=== PATIENT | male | born 1930 | race Caucasian/White ===

== ENCOUNTER 2017-10-16 13:02 | Inpatient (IN) | payer OTHER, MEDICAID ==
--- NOTE | 2017-10-16 12:57 | EDPHY ---
H & P Time Seen by Provider: 10/16/17 13:02 HPI/ROS: CHIEF COMPLAINT: Stroke Alert, left-sided deficits. HISTORY OF PRESENT ILLNESS: The patient is an 86 y/o male arriving emergently via EMS as a Stroke Alert from [facility] with left-sided neuro deficits noticed around 11:00 this morning , 2 hours prior to arrival. It's unclear when he was last seen normal. EMS noted left-sided weakness and left-sided facial droop on their arrival this afternoon. Per staff at the facility, he is normally able to move around somewhat independently; baseline mentation unknown. His medical history includes dementia, diabetes, and hypertension. He currently has a shingles infection with eruption on his face. Unknown if recent illness or trauma. He is able to slowly follow commands on assessment here and can tell me his name. Normal prehospital BGL. Per transfer paperwork he is on aspirin, but no anticoagulants. Further history limited by presentation. REVIEW OF SYSTEMS: Unable to obtain due to presentation. Past medical history: Dementia, diabetes, hypertension, hyperlipidemia, chronic kidney disease, per transfer paperwork. Past surgical history: Noncontributory. Family history: Noncontributory. Social history: Lives at [facility]. DNR with selective treatment (IV fluids and antibiotics okay, no major interventions). General Appearance: Alert. Vital signs reviewed. Face: Shingles rash across left side of face. Eyes: Pupils equal and round, no conjunctival injection, no discharge. Anicteric. ENT, Mouth: Mucous membranes are dry, no oropharyngeal erythema or edema. Neck: No lymphadenopathy, supple. Respiratory: Lungs are clear to auscultation; no wheezes, rales, or rhonchi. Cardiovascular: Regular rate and rhythm; no murmur, rub, or gallop. Gastrointestinal: Abdomen is soft and nontender, no masses or organomegaly. Skin: Warm and dry, shingles rash on face, normal color. Back: Deferred. Extremities: No lower extremity edema, no calf tenderness or swelling. Neurological: Alert, can state name, follows commands with some delay. Mild left nasolabial fold droop, mild left pronator drift. Psychiatric: Deferred. Constitutional: Initial Vital Signs Temperature (C) 36.8 C 10/16/17 13:08 Heart Rate 92 10/16/17 13:08 Respiratory Rate 16 10/16/17 13:08 Blood Pressure 113/68 10/16/17 13:08 O2 Sat (%) 97 10/16/17 13:08 O2 Delivery Mode Nasal Cannula O2 (L/minute) 2 Allergies/Adverse Reactions: No Known Allergies Allergy (Unverified 10/16/17 13:07) Home Medications: Medication Instructions Recorded Acetaminophen [Tylenol ES 500 mg 1,000 mg PO BID 10/16/17 (*)] Aspirin [Aspirin 81mg (*)] 81 mg PO DAILY 10/16/17 Calcium Carbonate [Tums 500MG (*)] 1,000 mg PO DAILY 10/16/17 Cholecalciferol Vit D3 [Vitamin D3 1,000 units PO DAILY 10/16/17 (*)] Docusate Sodium [Colace 100 MG (*)] 100 mg PO BID 10/16/17 Insulin Detemir [Levemir] 10 unit SQ DAILY 10/16/17 Lisinopril [Zestril 2.5 mg (*)] 2.5 mg PO DAILY@17 10/16/17 Medical Decision Making - Diagnostics Imaging Results: Imaging Impressions Chest X-Ray 10/16/17 13:04 Impression: Diffuse interstitial thickening throughout both lungs, without acute cardiopulmonary process identified. Head CT 10/16/17 13:04 Impression: Extensive underlying atrophy and white matter microvascular ischemic gliosis, without acute abnormality identified. Results called to Dr. Vianey Galvin at 1:15 PM at the time of the interpretation. Imaging: Discussed imaging studies w/ director of casino marketing Radiologist, I viewed and interpreted images myself ED Course/Re-evaluation: 1301: Met EMS upon arrival and took report. This is an 87 y/o male with dementia who presents with mild left-sided arm weakness and mild left-sided facial droop first noticed by facility staff about 2 hours prior to arrival here. He is able to state his name and follow basic commands slowly. Baseline mentation is not known. He has a shingles outbreak on his left face. No visible trauma. Plan for IV, labs, EKG, neuro imaging. 1303: Patient sent to CT for non-contrast head CT. Per transfer paperwork, patient has dementia, a DNR with selective treatment, and takes aspirin but no anticoagulants. He is likely not a TPA candidate. Will discuss with neurology once we have imaging reports. The 12 lead EKG was interpreted by myself. Atrial flutter rate 96, 3:1. See hard copy and/or "tracemaster" electronic copy for interpretation. 1316: Spoke with Dr. Barrera, radiologist. Non-contrast head CT shows atrophy and white matter disease, nothing acute. Case management will attempt to contact next of kin. 1322: Reassessed patient. Status unchanged. 1327: Consulted with Dr. Lacy, [facility]. Based upon the history and physical exam that I provided and based upon the patient's instructions for care , he does not think that this patient would be a good candidate for tPA and I agree. He describes the window as 3 hr for tPA for in a patient this age. The onset of symptoms remains unclear. He is out of the window for TPA per Dr. Lacy. Plan for supportive care, diltiazem bolus IV, 1L IV NS. Will watch BP closely. Chest x-ray: Reviewed by me. Shows multifocal interstitial thickening, no infiltrate. 1331: Reassessed patient. He is only oriented to self. He denies pain. Troponin is 0.045. Son is en route to the hospital per case management. 1430: Repeat 12 lead EKG was interpreted by myself. Atrial flutter with 3:1 conduction. See hard copy and/or "tracemaster" electronic copy for interpretation. Spoke with hospitalist service. Dr. Cramer accepts admission for possible CVA and atrial flutter. I have not spoken with the patient's family yet. Critical care time spent by me, Dr. Galvin, exclusively with this patient was 45 minutes, exclusive of PA time and exclusive of procedures. The organ system at risk was brain. Time spent in urgent assessment, activation of Stroke Alert, serial assessments of patient, discussion with patient and family, consideration of interventions, review of CT scans, and consultation with neurology and radiology. Differential Diagnosis: I considered a differential diagnosis including but not limited to hypoglycemia , infectious process, electrolyte abnormality, head injury, CVA, and intoxicants. - Data Points Laboratory Results: Laboratory Results 10/16/17 13:00 10/16/17 13:00 10/16/17 10/16/17 10/16/17 13:12 13:00 13:00 WBC RBC Hgb POC Hgb 13.9 gm/dL gm/dL (13.7-17.5) Hct POC Hct 41 % % (40-51) MCV MCH MCHC RDW Plt Count MPV Neut % (Auto) Lymph % (Auto) [place] % (Auto) Eos % (Auto) Baso % (Auto) Nucleat RBC Rel Count Absolute Neuts (auto) Absolute Lymphs (auto) Absolute Monos (auto) Absolute Eos (auto) Absolute Basos (auto) Absolute Nucleated RBC Immature Gran % Immature Gran # PT 13.9 SEC SEC (12.0-15.0) INR 1.05 (0.83-1.16) APTT 30.2 SEC SEC (23.0-38.0) POC Sodium 132 mEq/L L mEq/L (135-145) Sodium 133 mEq/L L mEq/L (135-145) POC Potassium 4.6 mEq/L mEq/L (3.3-5.0) Potassium 5.0 mEq/L mEq/L (3.5-5.2) POC Chloride 96 mEq/L L mEq/L (97-110) Chloride 96 mEq/L L mEq/L (97-110) Carbon Dioxide 26 mEq/l mEq/l (22-31) Anion Gap 11 mEq/L mEq/L (8-16) POC BUN 21 mg/dL mg/dL (7-23) BUN 21 mg/dL mg/dL (7-23) Creatinine 0.8 mg/dL mg/dL (0.7-1.3) POC Creatinine 0.8 mg/dL mg/dL (0.7-1.3) Estimated GFR > 60 Glucose 186 mg/dL H mg/dL (70-100) POC Glucose 206 mg/dL H mg/dL (70-100) Calcium 8.6 mg/dL mg/dL (8.5-10.4) Troponin I 0.045 ng/mL H ng/mL (0.000-0.034) 10/16/17 13:00 WBC 9.19 10^3/uL 10^3/uL (3.80-9.50) RBC 4.31 10^6/uL L 10^6/uL (4.40-6.38) Hgb 12.9 g/dL L g/dL (13.7-17.5) POC Hgb Hct 38.5 % L % (40.0-51.0) POC Hct MCV 89.3 fL fL (81.5-99.8) MCH 29.9 pg pg (27.9-34.1) MCHC 33.5 g/dL g/dL (32.4-36.7) RDW 13.7 % % (11.5-15.2) Plt Count 301 10^3/uL 10^3/uL (150-400) MPV 8.6 fL L fL (8.7-11.7) Neut % (Auto) 61.8 % % (39.3-74.2) Lymph % (Auto) 23.1 % % (15.0-45.0) [place] % (Auto) 12.7 % % (4.5-13.0) Eos % (Auto) 1.6 % % (0.6-7.6) Baso % (Auto) 0.5 % % (0.3-1.7) Nucleat RBC Rel Count 0.0 % % (0.0-0.2) Absolute Neuts (auto) 5.67 10^3/uL 10^3/uL (1.70-6.50) Absolute Lymphs (auto) 2.12 10^3/uL 10^3/uL (1.00-3.00) Absolute Monos (auto) 1.17 10^3/uL H 10^3/uL (0.30-0.80) Absolute Eos (auto) 0.15 10^3/uL 10^3/uL (0.03-0.40) Absolute Basos (auto) 0.05 10^3/uL 10^3/uL (0.02-0.10) Absolute Nucleated RBC 0.00 10^3/uL 10^3/uL (0-0.01) Immature Gran % 0.3 % % (0.0-1.1) Immature Gran # 0.03 10^3/uL 10^3/uL (0.00-0.10) PT INR APTT POC Sodium Sodium POC Potassium Potassium POC Chloride Chloride Carbon Dioxide Anion Gap POC BUN BUN Creatinine POC Creatinine Estimated GFR Glucose POC Glucose Calcium Troponin I Medications Given: Insulin Human Lispro (Humalog Lispro) 0 unit SC TIDMEAL YUVAL PRN Reason: Protocol Stop: 04/14/18 17:59 Last Admin: 10/16/17 18:10 Dose: 2 units Lisinopril (Zestril) 2.5 mg PO DAILY@17 YUVAL Stop: 04/14/18 16:59 Last Admin: 10/16/17 18:08 Dose: Not Given Discontinued Medications Diltiazem HCl (Cardizem 25 Mg/5 Ml Vial) 10 mg IVP EDNOW ONE Stop: 10/16/17 13:26 Last Admin: 10/16/17 13:37 Dose: 10 mg Sodium Chloride (Ns) 1,000 mls @ 500 mls/hr IV EDNOW ONE PRN Reason: Protocol Stop: 10/16/17 15:03 Last Admin: 10/16/17 13:25 Dose: 1,000 mls Diltiazem HCl 125 mg/ Dextrose 125 mls @ 0 mls/hr IV EDNOW ONE; As Directed PRN Reason: Protocol Stop: 10/16/17 14:03 Last Admin: 10/16/17 18:08 Dose: Not Given Point of Care Test Results: 10/16/17 13:12 POC Sodium 132 L POC Potassium 4.6 POC Chloride 96 L POC BUN 21 POC Creatinine 0.8 POC Glucose 206 H Departure - Departure Disposition: [facility] Inpatient Acute Clinical Impression: CVA (cerebral vascular accident) Qualifiers: CVA mechanism: unspecified Qualified Code(s): I63.9 - Cerebral infarction, unspecified Atrial flutter Qualifiers: Atrial flutter type: unspecified Qualified Code(s): I48.92 - Unspecified atrial flutter Condition: Fair Report Scribed for: Vianey Galvin Report Scribed by: Donna García Date of Report: 10/16/17 Time of Report: 12:59 Physician Review and Approval Statement: 10/16/17 21:44 Portions of this note were transcribed by the medical cost consultant. I, Dr. Vianey Galvin, personally performed the history, physical exam, and medical decision- making; and confirmed the accuracy of the information in the transcribed note.
[2017-10-16] MEDS ORDERED: NS 1,000 ML IV ONE (13:04)
[2017-10-16 13:15] LABS: PLATELET COUNT 301 10^3/uL (150-400)
--- NOTE | 2017-10-16 13:19 | CPEKG ---
Heart Rate: 96 RR Interval: 625 QRSD Interval: 102 QT Interval: 392 QTC Interval: 496 QRS [place]: 52 T Wave [place]: 59 EKG Severity - ABNORMAL ECG - EKG Impression: ATRIAL FLUTTER, A-RATE 333 EKG Impression: MULTIFORM VENTRICULAR PREMATURE COMPLEXES EKG Impression: INFERIOR INFARCT, OLD EKG Impression: CONSIDER ANTERIOR INFARCT EKG Impression: PROLONGED QT INTERVAL Electronically Signed By: Vianey Galvin 16-Oct-2017 21:03:07
[2017-10-16 13:25] LABS: INR 1.05 (0.83-1.16); PROTIME(PATIENT) 13.9 SEC (12.0-15.0)
[2017-10-16] MEDS ORDERED: DILTIAZEM 25 MG/5 ML VIAL IVP ONE (13:25)
[2017-10-16] MEDS ORDERED: DILTIAZEM 50 MG/10 ML VIAL IV ONE (13:29)
--- NOTE | 2017-10-16 13:44 | PDCONSULT ---
Phlebotomy Tech Note: [place] Telehealth Note -Phone Only Demographics Consult Type: Phone Only First Name: Jeyson Last Name: Masood Date of : 1930 Age: 87 Gender: Male Referring Provider: Dr Galvin Time of initial page ([place] Time): 10/16/2017 13:21 Time of return call ([place] Time): 10/16/2017 13:26 HPI Additional History (Free Text): 86 yo man with left face and arm weakness noted 2 hours prior to arrival, last known well time prior to that uncertain. He is in new Aflutter and hos apparent shingles outbreak on left forehead as well. Advanced directive specifies limited interventions, IVF and antibiotics OK, no other intensive interventions. PM-- Past Medical History: Dementia, Diabetes Mellitus, Hyperlipidemia, Hypertension Social History: lives in long-term Medications: aspirin Assessment:Probable acute stroke Plan Labs: HgbA1c, Lipid Panel Therapy/Eval: NPO until cleared by swallow evaluation, PT/OT Medication: aspirin 325mg per day VTE Prophylaxis: SCD, Heparin 5000 units subcutaneously q 12 hours Additional Recommendations: Not tPa candidate due to uncertain last known well time. (tPA window < 3hours with age > 80). Best supporrtive care. Repeat CT or MRI may better define suspected stroke tomorrow. Management of Aflutter fibrillation as needed, rate control may take priority over permissive HTN. Disposition: admit [employer] Telemedicine: Interactive 2 way audio and visual telecommunication technology was utilized during this visit. Provider Location: [place]
[2017-10-16] MEDS ORDERED: DILTIAZEM 125 MG in D5W 125 ML IV ONE (14:02)
--- NOTE | 2017-10-16 14:31 | CPEKG ---
Heart Rate: 91 RR Interval: 659 QRSD Interval: 108 QT Interval: 412 QTC Interval: 508 QRS [place]: -13 T Wave [place]: 48 EKG Severity - ABNORMAL ECG - EKG Impression: MULTIFORM VENTRICULAR PREMATURE COMPLEXES EKG Impression: PROBABLE INFERIOR INFARCT, OLD EKG Impression: BORDERLINE PROLONGED QT INTERVAL EKG Impression: ATRIAL FLUTTER Electronically Signed By: Vianey Galvin 16-Oct-2017 21:03:00
[2017-10-16] MEDS ORDERED: ONDANSETRON 4 MG/2 ML VIAL IVP PRN (16:04)
[2017-10-16] MEDS ORDERED: ACETAMINOPHEN 325 MG TAB PO PRN (16:04)
[2017-10-16] MEDS ORDERED: ONDANSETRON DISINTEGRATING 4 MG TAB PO PRN (16:04)
[2017-10-16] MEDS ORDERED: D50W 25 GM/50 ML SYR IVP PRN (16:07)
--- NOTE | 2017-10-16 16:41 | GHP ---
[f rep st] HISTORY AND PHYSICAL DATE OF ADMISSION: 10/16/2017 CHIEF COMPLAINT: Weakness. HISTORY OF PRESENT ILLNESS: An 87-year-old male who has a history of fairly advanced dementia. He h as been living at [facility] for the last 3 years. However, other than that he is fairly healthy, ot her than history of type 2 diabetes and a previous history of CABG many years ago. He was in his [facility] state of health until it was noticed this morning that he had left-sided weakness and left-sided f acial droop. He also had difficulty speaking. His blood sugar at the long term was normal. By t he time of my interview, the patient seems to be improving, although he does still have a little bit of left facial droop. He has never had any previous strokes. No previous history of atrial flutter as well, which he is in now. His baseline is that he gets around with a wheelchair and that he has good days and bad days, but nixon etimes able to remember his son. In the past, he has fallen a significant amount, although recently he has fallen less. Patient also was diagnosed with shingles apparently about 7 days ago. It is unclear if he received a course of Valtrex, but it seems that the shingles has crusted over already. REVIEW OF SYSTEMS: Unable to obtain secondary to patient's dementia. PAST MEDICAL HISTORY: 1. Dementia. 2. 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 3. Type 2 diabetes, on insulin. 4. Possible mild hypertension, on a very small dose of lisinopril. MEDICATIONS: Reviewed. SOCIAL HISTORY: No smoking or alcohol. Lives at [facility]. FAMILY HISTORY: Both parents are . PHYSICAL EXAMINATION: VITAL SIGNS: Afebrile, blood pressure is 127/83, heart rate 83, oxygen satura tion 99% on 2 L. GENERAL: The patient is well-developed, no apparent distress. HEENT: Nonicteric sclerae. Left-sided shingles that is crusted over the eye and forehead. His left eye has a little b it of injection, but he has been keeping it closed. NECK: Supple. No carotid bruits. LUNGS: Good effort. Clear to auscultation. CARDIOVASCULAR: Regular rate and rhythm. No murmurs or gallops. ABDOMEN: Positive bowel sounds. Soft, nontender, nondistended. No hepatosplenomegaly. EXTREMITIES : No clubbing, cyanosis, or edema. There are some brawny changes of the bravo area. NEUROLOGIC: Al ert. Does respond to some questions, but not related to commands. He does have a slight left facial droop. Difficult to assess strength. It looks like his left upper extremity is a little bit on the weaker side. PSYCHIATRIC: Normal mood and affect. LABS: Sodium a little bit low at 133, creatinine 0.8. Troponin slightly elevated at 0.05. Hemoglob in is slightly low at 12.9. Head CT personally reviewed and interpreted. There is extensive atrophy, but is otherwise without ac gilda CVA. EKG shows A-flutter with a 3:1 block. Chest x-ray, personally reviewed and interpreted, shows some interstitial thickening. ASSESSMENT: An 87-year-old male presenting with transient ischemic attack versus cerebrovascular acc ident. PLAN: 1. TIA versus CVA. Symptoms seem to be getting better. We will get an MRI in the morning. Embolic phenomenon with A-flutter could definitely be the cause. In terms of future stroke prophylaxis, felix davis and patient's family want more minimal interventions. He has does seem to be a fall risk. At t his point, I am not sure long-term anticoagulation would be right for him; however, we will have to w ait until the MRI done tomorrow to see if there is a stroke and, if so, it might be too large for us to immediately start anticoagulation. 2. A-flutter. The patient is rate controlled. Would not give any alberto blocking agents at this guille e. Would also not try to chemically convert. We will continue to watch it. We will get an echocard iogram and a TSH. Consider cardiology consultation. The question of anticoagulation has been addres sed above. 3. Shingles. Appears to be at end stages with crusting of the lesions. I would not start Valtrex c urrently. Could consider ophthalmology consultation, though, in the morning. 4. Slightly elevated troponin. We will recheck this in the morning. 5. Type 2 diabetes. We will continue sliding scale. 6. Possible hypertension. I suspect he might be on a small dose of lisinopril due to his diabetes. I am going to hold in case we do need a little bit of alberto blocking agents in the future. 7. DVT prophylaxis. We will treat with Lovenox. 8. Code status. Patient is a DNR. /[id number]/MODL
--- NOTE | 2017-10-16 17:40 | PDMN ---
Medical Necessity Medical necessity: C/M review: est. > 2 MN LOS for eval and TX of acute TIA versus CVA, left sided weakness and left sided facial droop, difficulty speaking , (symptoms improving, patient still has slight left facial droop, left upper extremity slightly weaker), new onset atrial flutter, slightly elevated troponin requiring planned Neurology consult, Rehab eval consult, Wound care consult, MRI brain, Doppler carotid bilateral US, echocardiogram, IV Diltiazem x 1 in ED, ongoing NPO, IV fluids, acute inpt PT/OT/ST in SDU, comorbid left sided shingles over the eys and forehead (diagnosed 7 days prior to this admission) with end stage with crusting of lesions - present on admission, type 2 dabetes, possible hypertension, dementia, history of CABG 10 or 15 yeatr ago, patient gets around in a wheelchair at baseline, history of falls per H/P.
[2017-10-16] MEDS: LISINOPRIL 2.5 MG TAB PO SCH (18:08)
[2017-10-16] MEDS: INSULIN LISPRO 100 UNIT/ML SC SCH (18:10)
--- NOTE | 2017-10-16 19:14 | ASMTCMCOM ---
CM Note CM Note Notes: Pt presented to the ED via EMS as a Stroke Alert with left sided facial droop, weakness and difficulty speaking. Pt has a history of dementia, Type 2 DM, CABG years ago, HTN. Pt typically uses a wheelchair. Pt admtd for possible TIA vs CVA, A-flutter and shingles. Pt to have MRI tomorrow, repeat Troponin and cardiology consult. Patient lives at [facility]. This CM called and requested they fax over pt's demographic/face sheet because it did not come with EMS; received face sheet. Contacted pt's son and [facility], Leelee Correia (h:[phone], c:[phone]) and Leelee's , Danita (c:[phone]); updated on patient's status. [facility] and it was scanned into pt's chart. Pt is a DNR and this was discussed briefly with Leelee over the phone while he was en route to the hospital; Leelee asked whether he could override the pt's DNR Advance Directive status. Pt also has a daughter, Carissa Hernandez ([phone], ) Exact DC needs unknown, CM to follow. Date Signed: 10/16/2017 07:14 PM Electronically Signed By:Ping Guajardo RN
[2017-10-16] MEDS ORDERED: ALBUMIN 5% 500 ML BOTTLE IV ONE (20:13)
[2017-10-17 05:36] LABS: PLATELET COUNT 269 10^3/uL (150-400)
[2017-10-17] MEDS: INSULIN LISPRO 100 UNIT/ML SC SCH ×3 (09:23→17:42)
--- NOTE | 2017-10-17 11:31 | GCON ---
[f rep st] CONSULTATION NEUROLOGIC CONSULTATION DATE OF CONSULTATION: 10/17/2017 REFERRING PHYSICIAN: Adonis Cramer MD HISTORY: The patient is an 87-year-old gentleman whom I am asked to see in neurologic consultation r egarding possible stroke. History is obtained from reviewing the history and physical, emergency dep artment records, as well as discussions with his nurse. Family is not immediately available for disc ussion. The patient apparently has a baseline moderate dementia and lives at [facility] for the last 3 years. The report from yesterday is that he seemed to notice weakness in his left side and some facial lindsay op. It sounds as if he did not specifically notice it, because when I asked him he was not aware of it, but this must have been noticed at the facility leading to him coming to the hospital in a stroke alert status. There was also some report of trouble with speaking. They checked his blood sugar. That did not show any acute changes, and he came to the emergency room for evaluation. He had a nega tive head CT. He was not felt to be a candidate for tPA a few hours into the onset of symptoms, and with his condition of dementia and uncertainty about overall risk versus benefit, it was decided with the consulting neurologist at [facility] and the emergency room physician that it would be appropriate to admit him and monitor him. The patient is unable to elaborate any details about this. He has be en stable overnight. This morning, he does not have any specific complaints. He denies headache or focal numbness or weakness. He apparently gets around with a wheelchair most of the time, and I do n ot know if he ever does any other kind of ambulation, but it does not sound as if that is the case. That is something we need to further understand. Since admission, there have been no recurrent docum entation of left-sided weakness. Dr. Cramer thought there might be a subtle left facial droop. PAST MEDICAL HISTORY: Dementia for some number of years, coronary bypass, type 2 diabetes, hypertens ion. Please note above. He also has a history of atrial flutter. SOCIAL HISTORY: He resides at [facility] and apparently may have lived in [place] before moving here, b ut I do not know that other than he said he was currently in [place], [place]. FAMILY HISTORY: Noncontributory. MEDICATIONS: The patient's listed medications at home: Insulin; aspirin 81 mg; lisinopril; calcium; Colace. He is now on Lovenox here in the hospital, continuing low-dose aspirin. REVIEW OF SYSTEMS: Unreliable for detail from the patient except what I have mentioned above. We do not have any history of known stroke. PHYSICAL EXAMINATION: VITAL SIGNS: Blood pressure 122/70, pulse of 84. He does have atrial flutter on the monitor. Oxygen saturation 92%, temperature 36.8. That was at 1308 p.m. yesterday. GENERAL : He is well developed, in no acute distress. NECK: Supple with no bruits or masses. CARDIAC: Re gular rate and rhythm. No murmur. MUSCULOSKELETAL: He is an elderly man with some chronic trophic changes in his legs around the calves over the course of about 10 cm bilaterally. That is clearly a chronic change in the skin. No full breakdown of the skin. NEUROLOGIC: He initially was with his e yes closed in bed, quiet, but with mild stimulation, he would awaken. He could tell me his name and follows some commands in all the extremities intermittently. He would try to open his eyes and could do so but had a lot of crusting around the left eye where he has had a recent zoster infection in th e ophthalmic division of the trigeminal nerve for about the past week. These are crusted-over lesion s. He kept saying he was in [place], [place] when I would ask. He did not realize he was in the hospital. He did not know he currently lives in [place]. He could not tell me the month or the year. He co uld count my fingers and again follow some basic instructions to move the extremities for example, an d as the therapist started to work with him as I finished my evaluation, they told me he was starting to become more alert and able to interact a little bit better. Pupils 2 mm and reactive. There is not overt conjunctival injection on the left. I do not see any visual field loss. Pupils 3 mm and r eactive. Facial sensation seems to be preserved. No facial asymmetry. Palate elevates symmetricall y. Tongue protrudes midline. Motor exam: Generalized decreased bulk for his age but not surprising at age 87. He has a little bit of proximal weakness in the upper and lower extremities, but I could not detect any distinct asymmetry. He seemed to be in the 4/5 range in all the extremities. Sensat ion is preserved for at least temperature and light touch in all the extremities. The reflexes are h ypoactive with no Babinski signs. I have reviewed his head CT. This shows atrophy which is extensiv e and white matter change but no acute stroke or hemorrhages. He had carotid ultrasound also obtaine d yesterday afternoon. He has moderate plaquing but no hemodynamically significant stenoses to sugge st anything greater than 50%. IMPRESSION: Total unit of time of 70 minutes was spent reviewing case and counseling and coordinatio n of care. We will need further discussions with family as well when they are available. As I viewe d this situation currently, he appears to be someone who has at least a moderate dementia and probabl y did not have a completed stroke based on the clinical findings now without distinct abnormalities b ut may have had a small stroke or transient ischemic attack in the last 24 hours. The patient may be close to his baseline, but we can get confirmation with that as well. Current NIH stroke scale woul d be 2 based on questions that he is able to answer. Although he has a recent zoster infection over the left 1st division of the trigeminal nerve, it does not appear to be actively involving his eye an d unlikely that he has intracranial spread. I think this can be clinically monitored. As Dr. Cramer suggested, he did not want to start him on Valtrex or antiviral therapy at this stage. It will be he lpful to know more about his state of dementia and how this has evolved. We also need further clarif ications on the extent of evaluations family may be looking for. I do not think it is necessary for him to go through MRI at this point because I do not think that would change his management, so we wi ll continue to monitor his progress and hopefully get him stabilized as soon as possible but learn mo re as the therapists work with him about his safety to continue to return to his current living situa tion. I recommend aspirin for now. The lipid profile shows LDL cholesterol 73, which is in good ran ge, so I would not recommend a statin in his case. /[id number]/MODL
--- NOTE | 2017-10-17 11:53 | ECHO ---
[email or web address] [address] Main: [phone] Fax: Transthoracic Echocardiogram Name: SREEKANTH EM MR#: [id number] Study Date: 10/17/2017 Study Time: 07:51 AM Date of : 1930 Age: 87 year(s) Height: 175.3 cm (69 in.) Weight: 72.58 kg (160 lb.) BSA: 1.88 m2 Gender: Male Examination: Echo Indication: Iscehemic Stroke, Atrial Flutter Image Quality: Contrast: Requested by: Adonis Cramer BP: 106 mmHg/57 mmHg Heart Rate: Rhythm: Indication: Iscehemic Stroke, Atrial Flutter Procedure Staff Sleeve Turner: Kana Peacock RDCS Reading Physician: Frandy Sullivan MD Requesting Provider: Conclusions: The rhythm is atrial fibrillation /flutter with a controlled ventricular response. Normal left ventricular size and systolic function . LVEF estimated at 60-65% and calculated at 68% by Talavera's. No evidence of ischemic appearing wall motion abnormalities . Normal RV, LA and RA dimensions. Intact interatrial septum on 2 dimensional imaging, color flow and agitated saline contrast injection. Mild aortic sclerosis without stenosis. Mild tricuspid regurgitation. Moderately elevated estimated RVSP. Measurements: Chambers Valvular Assessment AV/MV Valvular Assessment TV/PV Normal Normal Normal Name Value Range Name Value Range Name Value Range Ao Regi (MM): 3.1 cm (2.2 cm-3.7 AV Vmax: 1.44 m/s (1 m/s-1.7 TR Vmax: 3.61 mm/s ( - ) cm) m/s) TR PGmax: 52 mmHg ( - ) IVSd (2D): 0.8 cm (0.6 cm-1.1 AV maxP mmHg ( - ) syst. PAP: 57 mmHg ( - ) cm) AV meanP mmHg ( - ) PV Vmax: 1.11 m/s (0.6 m/s-0.9 LVDd (2D): 3.4 cm (4.2 cm-5.9 JEANMARIE (VTI): 1.5 cm ( - ) m/s) cm) MV E Vmax: 1.15 m/s ( - ) PV PGmax: 5 mmHg ( - ) LVDs (2D): 2.2 cm (2.1 cm-4 cm) LVPWd (2D): 1.0 cm (0.6 cm-1 cm) LVOTd 2.0 cm 2.0 cm mm LVEF (2D): 68 (>=54 %) Continued Measurements: Chambers Valvular Assessment AV/MV Valvular Assessment TV/PV Name Value Name Value Name Value LADs Lon.2 cm MV E' Septal: 0.08 m/s CVP (est.): 5 mmHg LA Area: 13.3 cm2 MV E/E' Septal: 13.90 Patient: SREEKANTH EM Study Date: 10/17/2017 Page 1 of 2 07:51 AM MV E/E' Lateral: 7.20 Findings: Left Ventricle: Normal size left ventricle. No LV hypertrophy. Normal global systolic LV function. EF is 68 %. No regional wall motion abnormality. Right Ventricle: Normal size right ventricle. Normal RV function. Left Atrium: The left atrium is normal in size. An agitated saline study was performed and was negative for intracardiac shunting. Right Atrium: The right atrium is normal in size. Mitral Valve: The mitral valve is normal in appearance and function. There is no mitral valve regurgitation. Aortic Valve: The aortic valve is tri-leaflet. Mild aortic cusp calcification is noted. No aortic valve stenosis is present. Tricuspid Valve: The tricuspid valve appears normal. Mild tricuspid regurgitation is present. The pulmonary artery pressure is mild to moderately increased. Pulmonic Valve: The pulmonic valve is normal in appearance and function. Aorta: The aorta is normal. Pericardium: No pericardial effusion. (No Signature Object) Patient: SREEKANTH EM Study Date: 10/17/2017 Page 2 of 2 07:51 AM [id number]
[2017-10-17] MEDS: ENOXAPARIN 40 MG/0.4 ML SYR SC SCH (12:10)
[2017-10-17] MEDS: ASPIRIN 81 MG CHEWABLE TAB PO SCH (12:10)
[2017-10-17] MEDS: NS 1,000 ML IV SCH (12:37)
--- NOTE | 2017-10-17 15:58 | HOSPPROG ---
Hospitalist Progress Note Assessment/Plan: 87 yo M with hx of advanced dementia admitted with left sided weakness/left facial droop in setting of TIA/CVA # TIA/CVA: overnight sxs have improved significantly in terms of left sided weakness, this could represent small stroke. Will not get MRI as this would not likely change any management at this point. Appreciate neuro following, will continue pt/ot. # shingles: in trigeminal distribution, crusted over already and likely not overly symptomatic at this point # dementia: quite advanced but at baseline more interactive than currently # acute encephalopathy: more somnolent than baseline and suspect this is largely driven by delirium in the setting of not much sleep overnight etc # DM: with A1c of 8.1, continued on SSI, on detemir at home # IP status, will need > 48 hours stay for eval/mgmt of above Care plan reviewed with neurology and patients daughter present at bedside. Subjective: no significant overnight events, patient somnolent but arousable Objective: Vital Signs Temp Pulse Resp BP Pulse Ox 37.1 C 83 12 111/58 L 97 10/17/17 11:48 10/17/17 11:48 10/17/17 11:48 10/17/17 11:48 10/17/17 11:48 Laboratory Results 10/17/17 04:55 10/17/17 04:55 10/16/17 10/17/17 10/18/17 05:59 05:59 05:59 Intake Total 1270 Output Total 740 Balance 530 PT 13.9 SEC (12.0-15.0) 10/16/17 13:00 INR 1.05 (0.83-1.16) 10/16/17 13:00 somnolent arousable anicteric, scabbing shingles lesions over left eye op clear rrr no mrg cta b soft nt nd no cce warm dry well perfused - Time Spent With Patient Time Spent with Patient: greater than 35 minutes Time Spent with Patient: Greater than 35 minutes spent on this patients care, greater than 50% of time spent counseling, educating, and coordinating care regarding the above mentioned plan. ICD10 Worksheet Patient Problems: Problems Problem Status Onset CVA (cerebral vascular accident) Acute Atrial flutter Acute
--- NOTE | 2017-10-17 17:07 | WOCRNPDOC ---
WOCRN Advanced Assessment Note - Skin Integrity Problem, Advanced Assess Sacrum Dressing Type: Mepilex Border Dressing Description: Clean/Dry, Intact Exudate Amount: None Integumentary Issue Intervention: Dressing Removed Mary Wound Tissue: Blanching, Intact Wound Bed Color: [place], White Wound Edges: Well Defined Site Measurement - Head-to-Toe Length X Width X Depth (cm): 0.6x0.4x0.3 Skin Integrity Problem Comment: Patient with an anatomical dimple over sacral region, approximately the size of the tip of a cotton tipped swab. No exudate from wound. Base of dimple appears white but I believe this to be maceration from moisture trapped in the area. Will remove sacral dressing for now and recommend calazime to area if needed. Wound care will roung again later this week.
[2017-10-17] MEDS: LISINOPRIL 2.5 MG TAB PO SCH (17:41)
[2017-10-18] MEDS: NS 1,000 ML IV SCH (01:08)
[2017-10-18 07:42] VITALS: BP 125/61
[2017-10-18] MEDS: INSULIN LISPRO 100 UNIT/ML SC SCH ×2 (08:54→12:07)
[2017-10-18] MEDS: ENOXAPARIN 40 MG/0.4 ML SYR SC SCH (09:50)
[2017-10-18] MEDS: ASPIRIN 81 MG CHEWABLE TAB PO SCH (09:50)
--- NOTE | 2017-10-18 11:44 | HOSPPROG ---
Hospitalist Progress Note Assessment/Plan: 87 yo M with hx of advanced dementia admitted with left sided weakness/left facial droop in setting of TIA/CVA # TIA/CVA: with original sxs of left sided weakness which continues to improve. 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 Remains somnolent but more interactive today, continue pt/ot. # shingles: in trigeminal distribution, crusted over and patient denies much sxs related to this at this time # dementia: quite advanced at baseline per family, today he is closer to his baseline however and more interactive # acute encephalopathy: more somnolent than baseline and suspect this is largely driven by delirium in the setting of not much sleep/hospitalization and tia/cva. Improved today, continue to work on orientation and keeping patient awake during the day # DM: with A1c of 8.1, continued on SSI, on detemir at home # IP status, will need > 48 hours stay for eval/mgmt of above Subjective: no significant overnight events, patient denies issues this am Objective: Vital Signs Temp Pulse Resp BP Pulse Ox 36.8 C 79 14 125/61 H 94 10/18/17 07:41 10/18/17 07:41 10/18/17 07:41 10/18/17 07:41 10/18/17 07:41 Laboratory Results 10/17/17 04:55 10/17/17 04:55 10/17/17 10/18/17 10/19/17 05:59 05:59 05:59 Intake Total 1270 2030 Output Total 740 650 Balance 530 1380 PT 13.9 SEC (12.0-15.0) 10/16/17 13:00 INR 1.05 (0.83-1.16) 10/16/17 13:00 somnolent arousable anicteric, scabbing shingles lesions over left eye op clear rrr no mrg cta b soft nt nd no cce warm dry well perfused oriented to self and place, more interactive, strength diminished throughout but equal ICD10 Worksheet Patient Problems: Problems Problem Status Onset Atrial flutter Acute CVA (cerebral vascular accident) Acute
--- NOTE | 2017-10-18 14:12 | PDDCSUM ---
Discharge Summary Discharge Summary: DAtes of service 10/16-10/18/17 Consultations: neurology Procedures performed: head ct, echo, carotid dopplers Hospital course by problem: 87 yo M with hx of advanced dementia admitted with left sided weakness/left facial droop in setting of TIA/CVA # TIA/CVA: with original sxs of left sided weakness which continues to improve. MRI not pursued as determination of whether or not this was a small cva will be unlikely to data management associate. Remains somnolent but more interactive today, per caregivers and pt/ot eval this is essentially his baseline. # shingles: in trigeminal distribution, crusted over and patient denies much sxs related to this at this time # dementia: quite advanced at baseline per family, today he is closer to his baseline however and more interactive # acute encephalopathy: as above, driven by tia as well as delirium, back to baseline # DM: with A1c of 8.1, continued on SSI, on detemir at home dc back to snf > 35 min spent in dc, more than half in coordination of care
--- NOTE | 2017-10-18 14:12 | PDIAF ---
- Diagnosis Code Status: Do Not Resuscitate - Medication Management Discharge Medications: Medications to Continue on Transfer Acetaminophen [Tylenol ES 500 mg (*)] 1,000 mg PO BID 10/16/17 [Last Taken 10/16 09:00] Aspirin [Aspirin 81mg (*)] 81 mg PO DAILY 10/16/17 [Last Taken 10/16/17] Calcium Carbonate [Tums 500MG (*)] 1,000 mg PO DAILY 10/16/17 [Last Taken ] Cholecalciferol Vit D3 [Vitamin D3 (*)] 1,000 units PO DAILY 10/16/17 [Last Taken 10/16/17] Docusate Sodium [Colace 100 MG (*)] 100 mg PO BID 10/16/17 [Last Taken 10/16/17 09:00] Insulin Detemir [Levemir] 10 unit SQ DAILY 10/16/17 [Last Taken 10/16/17] Lisinopril [Zestril 2.5 mg (*)] 2.5 mg PO DAILY@17 10/16/17 [Last Taken 10/15/17 ] Acetaminophen [Tylenol 325mg (*)] 650 mg PO Q4HRS PRN tab 10/18/17 [Last Taken Unknown] Discharge Medications: Refer to the Discharge Home Medication list for PRN reason. - Orders Services needed: Registered Nurse, Certified Manager Access, Physical Therapy, Occupational Therapy, Speech Language Pathologist Diet Texture: Dysphagia 3 - Advanced - Moist, Bite-Size, Thin Liquids, Meds Whole in Puree - Follow Up Care Current Providers and Referrals: Patient,NotPresent [Unknown] - As per Instructions
--- NOTE | 2017-10-18 15:50 | ASDISCHSUM ---
Discharge Information Plan Status:SNF Medically Cleared to Leave:10/18/2017 Discharge Date:10/18/2017 CM D/C Disposition:[facility] Facility ADT D/C Disposition:[facility] Facility Projected Discharge Date:10/18/2017 04:30 PM Transportation at D/C:ALS/BLS Discharge Delay Reason: Follow-Up Date:10/18/2017 04:30 PM Discharge Slot: Final Diagnosis:TIA/CVA, Shingles, Encephalopathy Placement Information Referral Type:*Senior Living/SNF Referral ID:[id number] Provider Name:[facility] Address 1:[address] Address 2: City:[place] Selection Factors: State:[place] Patient Contact Information Contact Name:KYRA Relationship:Son [address] City:[place] Phone: State/Zip Code:[place] [address] Email: Financial Information Financial Class:Medicare Advantage Plans Primary Plan Desc:[facility] [employer] Primary Plan Number:[id number] Secondary Plan Desc:[place] Secondary Plan Number:[id number] Assessment Information [facility] Progress Note CM Note CM Note Notes: Pt presented to the ED via EMS as a Stroke Alert with left sided facial droop, weakness and difficulty speaking. Pt has a history of dementia, Type 2 DM, CABG years ago, HTN. Pt typically uses a wheelchair. Pt admtd for possible TIA vs CVA, A-flutter and shingles. Pt to have MRI tomorrow, repeat Troponin and cardiology consult. Patient lives at [facility]. This CM called and requested they fax over pt's demographic/face sheet because it did not come with EMS; received face sheet. Contacted pt's son and MDPOA, Leelee Correia (h:[phone], c:[phone]) and Leelee's , Danita (c:[phone]); updated on patient's status. Leelee provided [facility] paperwork and it was scanned into pt's chart. Pt is a DNR and this was discussed briefly with Leelee over the phone while he was en route to the hospital; Leelee asked whether he could override the pt's DNR Advance Directive status. Pt also has a daughter, Carissa Hernandez ([phone], ) Exact DC needs unknown, CM to follow. Date Signed: 10/16/2017 07:14 PM Electronically Signed By:Ping Guajardo RN LACE LACE Acuity / Level of Answers: Yes Care: Did the patient have an inpatient admission? Comorbidities - select Answers: Cerebrovascular disease all that apply (CVA, TIA, aneurysms, vasc ular dementia) Diabetes (uncontrolled or controlled) Moderate or severe liver or renal disease # of Emergency department Answers: 1-2 visits in the last 6 months Score: 10 Date Signed: 10/16/2017 07:15 PM Electronically Signed By:Ping Guajardo RN Case Management Discharge Plan Note Case Management Discharge Discharge Order Complete? Answers: Yes Patient to Obtain Answers: Other Notes: [facility] Transportation Arranged Answers: [facility] Transport will Pick (Date 10/18/2017 04:30 PM & Time) Case Management Transport Answers: Yes Form Complete Faxed Final Orders Answers: Yes Notes: [facility] Family Notified Answers: Yes Discharge Comments Notes: Patient at baseline/Therapies. Was involved with [facility] at [facility]. Will return to [facility] today. [facility] to transport. Date Signed: 10/18/2017 03:48 PM Electronically Signed By:Mena Arnold LCSW Intervention Information Intervention Type:Locating Emergency Contact Date of Service:10/16/2017 07:16 PM Patient Type:Inpatient Staff Member:JASMINE Guajardo Sharon Hours:0.5 Discipline:Restaurant Attendant Severity: Comment:
== END 2017-10-18 15:40 | DRG 64 ==
LOC: F2N 15:41
PROVIDERS: ADMIT Internal Medicine; ATTEND Internal Medicine
DX: I63.9 Cerebral infarction, unspecified (principal); G93.49 Other encephalopathy; G45.9 Transient cerebral ischemic attack, unspecified; G81.94 Hemiplegia, unspecified affecting left nondominant side; I48.92 Unspecified atrial flutter; F03.90 Unspecified dementia, unspecified severity, without behavioral disturbance, psychotic disturbance, mood disturbance, and anxiety; R29.810 Facial weakness; B02.9 Zoster without complications; E11.9 Type 2 diabetes mellitus without complications; Z66 Do not resuscitate; I10 Essential (primary) hypertension; E78.5 Hyperlipidemia, unspecified; Z95.1 Presence of aortocoronary bypass graft
CPT/HCPCS: 82947-QW; 92610-GN; 96374; 97162-GP; 97166-GO; 97530-GP; G8996-GN-CI; G8997-GN-CI; G8998-GN-CI; J1650; J1815; P9041

== ENCOUNTER 2017-10-19 14:03 | Inpatient (IN) | payer OTHER, MEDICAID ==
[2017-10-19] MEDS ORDERED: KETAMINE 200 MG/20 ML VIAL ONE (14:12)
[2017-10-19] MEDS ORDERED: ONDANSETRON 4 MG/2 ML VIAL IVP ONE (14:15)
[2017-10-19] MEDS ORDERED: fentaNYL 100 MCG/2 ML INJ IVP ONE (14:15)
[2017-10-19] MEDS ORDERED: KETAMINE 200 MG/20 ML VIAL IVP ONE (14:15)
--- NOTE | 2017-10-19 14:21 | CPEKG ---
Heart Rate: 164 RR Interval: 366 P-R Interval: 352 QRSD Interval: 84 QT Interval: 296 QTC Interval: 489 P [place]: 0 QRS [place]: 38 T Wave [place]: 21 EKG Severity - ABNORMAL ECG - EKG Impression: SUPRAVENTRICULAR TACHYCARDIA Electronically Signed By: Weston Ngo 19-Oct-2017 21:10:39
[2017-10-19] MEDS ORDERED: KETAMINE 500 MG/10 ML VIAL IVP ONE ×3 (14:22→15:06)
[2017-10-19 14:24] LABS: PLATELET COUNT 375 10^3/uL (150-400)
--- NOTE | 2017-10-19 14:36 | EDPHY ---
H & P Time Seen by Provider: 10/19/17 14:11 HPI/ROS: HPI Difficulty breathing. 87-year-old male by ambulance from [facility]. Staff noticed patient at approximately 1:00 p.m. Became suddenly very dyspneic and struggle to breathe. Staff feels the patient probably aspirated. On EMS arrival patient 's pulse oximetry in the 60s. He was cyanotic. He was placed on 5 L nasal cannula oxygen. Pulse oximetry came up into the mid 70s. Patient has a history of severe dementia. I am not able to get any further history from him. He does have a DNR DNI paperwork. ROS: Unable to obtain. Past medical history: Hypertension, dementia, kidney disease, diabetes. Social history: From [facility]. Physical Exam: General Appearance: Alert, markedly dyspneic. This patient appears generally well-hydrated and well-nourished. Eyes: Pupils equal and round no pallor or injection. No lid edema, erythema or injection. Respiratory: Retractions bilaterally, tachypneic at 30, coarse rhonchi throughout, worse on the right side versus the left. Cardiovascular: Regular rate and rhythm. No murmur. Gastrointestinal: Abdomen is soft and nontender, no masses, bowel sounds normal. No focal tenderness at McBurney's point. No Laguna sign. Neurological: Motor sensory function baseline. Skin: Warm and dry, no rashes. Musculoskeletal: Neck is supple and nontender. Extremities are symmetrical. Feet are wrapped in padded stockings. All joints range without apparent pain or impingement. Psychiatric: No agitation. No depression. Database: EKG: EKG time is 2:19 p.m.; EKG shows a narrow complex tachycardia, ventricular rate of 164. Likely atrial flutter with 2-1 block and variable block. No ST, T-wave changes indicative of ischemic or injury pattern. Interpreted by me. Imaging: AP portable chest x-ray: Diffuse interstitial thickening, diffuse infiltrative pattern on the right likely secondary to aspiration, compared to prior x-ray from October 16 of this year. Interpreted by me. Procedures: Emergency department course: Vital signs reviewed. Patient is febrile at 38.2. integrity specialist shows a narrow complex tachycardia with ventricular rate of 162. Patient hypertensive at 172/117. Patient started on CPAP initially at 8. This will be titrated up accordingly. He was initially given 4 mg of IV Zofran and 25 mg of IV fentanyl as anxiolytic. Plan will be to give him ketamine in 10 mg dose increments every 10-15 minutes as needed for anxiolysis. 2:35 p.m., patient re-evaluated. Blood pressure currently 132/100. Pulse oximetry 92% on CPAP at 13. Heart rate did come down into the 140s. Chest x- ray reviewed by myself. Likely aspiration pneumonitis on the right side. CHF unlikely. The patient will be given 500 cc of IV normal saline. Will see if correction of hypoxia and fluids results tachycardia. If not will consider diltiazem IV. Blood cultures have been drawn. The patient will be started on Unasyn 3 g IV. 3:00 p.m., patient switched from CPAP to BiPAP at 16/8 in an attempt to ventilate him better. integrity specialist currently shows a narrow complex tachycardia likely sinus ventricular rate of 134. Pulse oximetry currently 87%. Discussed case with on-call hospitalist Dr. Christensen. He is currently at the bedside. He accepts the patient for admission to the step-down unit. 3:15 p.m., patient's daughter is at bedside. The patient's condition, emergency department course and expected management discussed with her. All of her questions were answered. She is comfortable with the patient remaining DNR , DNI status. 4:15 p.m., the patient's heart rate continues to decrease. Currently in the low 120s. Tolerating BiPAP well. He was admitted to the step-down unit in guarded condition. Differential Diagnosis: The differential diagnosis on this patient includes but is not limited to aspiration pneumonia, pneumonitis. Congestive heart failure, pulmonary embolism , acute coronary syndrome, pericardial effusion unlikely. This represents a partial list of diagnoses considered. These considerations are based on history , physical exam, past history, reassessment and diagnostic testing. Smoking Status: Unknown if ever smoked Constitutional: Initial Vital Signs Temperature (C) 38.2 C 10/19/17 14:04 Heart Rate 162 H 10/19/17 14:04 Respiratory Rate 28 H 10/19/17 14:04 Blood Pressure 172/117 H 10/19/17 14:04 O2 Sat (%) 71 L 10/19/17 14:04 O2 Delivery Mode CPAP O2 (L/minute) 15 Allergies/Adverse Reactions: No Known Allergies Allergy (Unverified 10/16/17 13:07) Home Medications: Medication Instructions Recorded Acetaminophen [Tylenol ES 500 mg 1,000 mg PO BID 10/16/17 (*)] Aspirin [Aspirin 81mg (*)] 81 mg PO DAILY 10/16/17 Calcium Carbonate [Tums 500MG (*)] 1,000 mg PO DAILY 10/16/17 Cholecalciferol Vit D3 [Vitamin D3 1,000 units PO DAILY 10/16/17 (*)] Docusate Sodium [Colace 100 MG (*)] 100 mg PO BID 10/16/17 Insulin Detemir [Levemir] 10 unit SQ DAILY 10/16/17 Lisinopril [Zestril 2.5 mg (*)] 2.5 mg PO DAILY@17 10/16/17 Acetaminophen [Tylenol 325mg (*)] 650 mg PO Q4HRS PRN tab 10/18/17 Medical Decision Making - Diagnostics Imaging Results: Imaging Impressions Chest X-Ray 10/19/17 14:13 Impression: Bilateral pneumonia. Critical Care Time: I spent a total of 42 minutes of critical care time in obtaining history, performing a physical exam, bedside monitoring of interventions, collecting and interpreting tests and discussion with consultants but not including time spent performing procedures. - Data Points Laboratory Results: Laboratory Results 10/19/17 14:15 10/19/17 14:14 10/19/17 10/19/17 10/19/17 14:15 14:15 14:14 WBC 18.72 10^3/uL H D 10^3/uL (3.80-9.50) RBC 4.58 10^6/uL 10^6/uL (4.40-6.38) Hgb 13.8 g/dL g/dL (13.7-17.5) Hct 42.5 % % (40.0-51.0) MCV 92.8 fL fL (81.5-99.8) MCH 30.1 pg pg (27.9-34.1) MCHC 32.5 g/dL g/dL (32.4-36.7) RDW 14.0 % % (11.5-15.2) Plt Count 375 10^3/uL D 10^3/uL (150-400) MPV 8.7 fL fL (8.7-11.7) Neut % (Auto) 83.5 % H % (39.3-74.2) Lymph % (Auto) 12.6 % L % (15.0-45.0) [place] % (Auto) 2.8 % L % (4.5-13.0) Eos % (Auto) 0.4 % L % (0.6-7.6) Baso % (Auto) 0.4 % % (0.3-1.7) Nucleat RBC Rel Count 0.0 % % (0.0-0.2) Absolute Neuts (auto) 15.63 10^3/uL H 10^3/uL (1.70-6.50) Absolute Lymphs (auto) 2.36 10^3/uL 10^3/uL (1.00-3.00) Absolute Monos (auto) 0.53 10^3/uL 10^3/uL (0.30-0.80) Absolute Eos (auto) 0.07 10^3/uL 10^3/uL (0.03-0.40) Absolute Basos (auto) 0.07 10^3/uL 10^3/uL (0.02-0.10) Absolute Nucleated RBC 0.00 10^3/uL 10^3/uL (0-0.01) Immature Gran % 0.3 % % (0.0-1.1) Immature Gran # 0.06 10^3/uL 10^3/uL (0.00-0.10) PT 14.2 SEC SEC (12.0-15.0) INR 1.08 (0.83-1.16) APTT 26.8 SEC SEC (23.0-38.0) Sodium 137 mEq/L mEq/L (135-145) Potassium 4.7 mEq/L mEq/L (3.5-5.2) Chloride 100 mEq/L mEq/L (97-110) Carbon Dioxide 20 mEq/l L mEq/l (22-31) Anion Gap 17 mEq/L H mEq/L (8-16) BUN 9 mg/dL mg/dL (7-23) Creatinine 0.7 mg/dL mg/dL (0.7-1.3) Estimated GFR > 60 Glucose 261 mg/dL H mg/dL (70-100) Calcium 8.8 mg/dL mg/dL (8.5-10.4) Troponin I 0.039 ng/mL H ng/mL (0.000-0.034) NT-Pro-B Natriuret Pep 9900 pg/mL H pg/mL (0-450) Medications Given: Morphine Sulfate (Morphine) 1 - 2 mg IVP Q1HR PRN PRN Reason: Pain, Severe Unable to Take PO Stop: 10/29/17 15:07 Last Admin: 10/19/17 15:40 Dose: 1 mg Discontinued Medications Ampicillin Sodium/Sulbactam Sodium (Unasyn) 3 gm IV EDNOW ONE PRN Reason: Protocol Stop: 10/19/17 14:41 Last Admin: 10/19/17 15:08 Dose: 3 gm Fentanyl (Sublimaze) 25 mcg IVP EDNOW ONE Stop: 10/19/17 14:16 Last Admin: 10/19/17 14:06 Dose: 25 mcg Sodium Chloride (Ns) 500 mls @ 500 mls/hr IV ONCE ONE Stop: 10/19/17 15:52 Last Admin: 10/19/17 14:53 Dose: 500 mls Ketamine HCl (Ketamine) 10 mg IVP EDNOW ONE Stop: 10/19/17 14:16 Last Admin: 10/19/17 14:13 Dose: 10 mg Ketamine HCl (Ketamine) 10 mg IVP EDNOW ONE Stop: 10/19/17 14:23 Last Admin: 10/19/17 14:23 Dose: 10 mg Ketamine HCl (Ketamine) 10 mg IVP EDNOW ONE Stop: 10/19/17 14:38 Last Admin: 10/19/17 14:40 Dose: 10 mg Ketamine HCl (Ketamine) 10 mg IVP ONCE ONE Stop: 10/19/17 15:07 Last Admin: 10/19/17 15:08 Dose: 10 mg Ketamine HCl (Ketamine) 10 mg IVP ONCE ONE Stop: 10/19/17 15:31 Last Admin: 10/19/17 16:05 Dose: Not Given Ondansetron HCl (Zofran) 4 mg IVP EDNOW ONE Stop: 10/19/17 14:16 Last Admin: 10/19/17 14:06 Dose: 4 mg Departure - Departure Disposition: [facility] Acute Clinical Impression: Aspiration pneumonia, Hypoxia
[2017-10-19 14:40] LABS: INR 1.08 (0.83-1.16); PROTIME(PATIENT) 14.2 SEC (12.0-15.0)
[2017-10-19] MEDS ORDERED: AMPICILLIN/SULBACTAM 3 GM VIAL IV ONE (14:40)
[2017-10-19] MEDS ORDERED: NS 500 ML IV ONE (14:53)
[2017-10-19] MEDS ORDERED: ONDANSETRON 4 MG/2 ML VIAL IVP PRN (15:08)
[2017-10-19] MEDS ORDERED: ACETAMINOPHEN 325 MG TAB PO PRN (15:08)
[2017-10-19] MEDS ORDERED: ONDANSETRON DISINTEGRATING 4 MG TAB PO PRN (15:08)
[2017-10-19] MEDS ORDERED: NS 1,000 ML IV SCH (15:15)
[2017-10-19] MEDS: KETAMINE 200 MG/20 ML VIAL IVP ONE ×2 (15:32→16:05)
[2017-10-19] MEDS ORDERED: D50W 25 GM/50 ML SYR IVP PRN (16:29)
[2017-10-19] MEDS ORDERED: VANCOMYCIN 1.25 GM in NS 250 ML IV SCH (17:30)
[2017-10-19] MEDS: PIPERACILLIN/TAZO 4.5 GM/DEX 100 ML IV SCH (17:57)
[2017-10-19] MEDS: INSULIN LISPRO 100 UNIT/ML SC SCH (18:12)
--- NOTE | 2017-10-19 18:16 | GHP ---
[f rep st] HISTORY AND PHYSICAL DATE OF ADMISSION: 10/19/2017 CHIEF COMPLAINT: The patient is obtunded. HISTORY OF PRESENT ILLNESS: This is an 87-year-old man who was admitted here for a possible CVA/TIA, discharged yesterday. He is currently living at [facility]. He has been wheelchair-bound for the last year with severe dementia. Apparently, he was eating this morning when he began coughing and immediately went into respiratory distress. For this reason, he was brought into the emergency department. When he arrived here he was saturating in the mid 60s on a 15 L non-rebreather mask. When I am seeing him, he is completely obtunded, in severe respiratory distress, on BiPAP. Because of this, all history is gleaned from his chart. PAST MEDICAL/SURGICAL HISTORY: 1. History of a recent TIA versus CVA. 2. Recent shingles. 3. Dementia. 4. Coronary artery disease, status post CABG done 15 years ago. 5. Diabetes mellitus type 2, on insulin. 6. Hypertension. MEDICATIONS: Please see medication reconciliation. ALLERGIES: No known drug allergies. SOCIAL HISTORY: He lives at [facility]. He does not smoke or drink. FAMILY HISTORY: Both parents are . REVIEW OF SYSTEMS: A 10-point review of systems is conducted and is negative except per HPI. PHYSICAL EXAM: VITAL SIGNS: Blood pressure 102/59, heart rate 116, respiration rate 40, saturating at 85% on BiPAP, 16 IPAP, 8 EPAP, 100% FiO2. GENERAL: The patient is an obtunded man who appears in severe respiratory distress. HEENT: Shows him to have marked left-sided scabbed lesions on his left forehead. CARDIOVASCULAR: Shows him to have distant S1, S2. He is tachycardic. I do not appreciate any murmurs, rubs, or gallops. RESPIRATORY: From the anterior shows him to have marked right-sided crackles. He is in severe respiratory distress. He is on BiPAP. ABDOMEN: Soft. He has normal bowel sounds. SKIN: Shows multiple bruises and excoriations. : Shows no Parrish. NEUROLOGIC: Shows him to be alert and oriented x0, not sure if he is moved all of his extremities at this point. PSYCHIATRIC: Unobtainable. LABS: White count is 18.7. INR 1.0. BNP is 9900. Glucose is 261, bicarb is 20. DATA: 1. I discussed this with Dr. Ngo, will admit to the step-down unit. 2. I personally viewed and interpreted his chest x-ray, shows marked right- sided infiltrates with some left basilar infiltrates. 3. I personally viewed and interpreted his EKG. This shows what appears to be sinus tachycardia. He has some ST depressions in I, II and L, as well as V4, V5. IMPRESSION/PLAN: 1. Respiratory failure: He is in significant distress. This is due to bilateral aspiration pneumonia. I reviewed his MOLST form, which is very clear that he would not want to be resuscitated and would not want to be intubated. I discussed this with his son as well as his daughter, who were at one point considering revoking this, though that decision has not been made. I told them very clearly that I thought we needed to respect his wishes at this point. We will continue him on BiPAP and provide antibiotics. 2. Bilateral aspiration pneumonia: We will treat him for anaerobes as well as nosocomial microbes, given his discharge yesterday. I placed him on vancomycin and Zosyn. 3. Hypotension: This is quite marked after receiving some morphine. Because of this, I do not think he would tolerate any diuresis, which could be considered. He had an echocardiogram done on the 8th of this month, which showed normal EF, with moderately elevated RVSP. His blood pressure has improved after holding morphine. He does not need pressors at this time. We will follow this closely in step-down unit. 4. Recent diagnosis of transient ischemic attack/cerebrovascular accident: He has been placed on aspirin. 5. Coronary artery disease, status post coronary artery bypass graft: Continue aspirin, as above. 6. Recent diagnosis of atrial fibrillation/flutter: Decision was made not to anticoagulate given his frail status. Aspirin is appropriate. 7. Diabetes mellitus type 2: We will hold his long-acting insulin and provide him short-acting insulin for now. He may need additional control. 8. Shingles: Given the light state of his shingles at this point, I do not think he needs any acyclovir or valacyclovir. 9. Code status: Do not resuscitate. Did discuss at length with son and daughter. His son is his MD POA. I have expressed the fact that we need to honor his wishes at this point. He has a MOLST form. 10. Venous thromboembolism risk: He is high risk. He will get Lovenox. BILLING: I spent a total of 60 minutes of floor critical care time managing this patient's respiratory failure. ADDENDUM: I returned and visited with the family in the ICU. Mr Correia's blood pressure has been low. I discussed the placement of a central line and pressor therapy - the family would not like these interventions at this time. This is consistent with Mr Correia's MOST form which stated to avoid ICU. /[id number]/MODL MTDD
[2017-10-20 08:11] VITALS: BP 79/45
[2017-10-20] MEDS: INSULIN LISPRO 100 UNIT/ML SC SCH ×3 (08:34→14:59)
[2017-10-20] MEDS ORDERED: ENOXAPARIN 40 MG/0.4 ML SYR SC SCH (09:00)
--- NOTE | 2017-10-20 11:28 | PDMN ---
Medical Necessity Medical necessity: Patient meets inpatient criteria per physician order and MCG M-283 Pnemonia Due to Aspiration (coughing/immed resp distress while eating at SNF; hypoxemia/sat mid-60% on 15 LPM NRB mask; tachypnea, tachycardia in the 160 's; hypotensive w/syst B/P in 60's; history of poss CVA/TIA and w/chair bound w/ severe dementia; patient with MOLST form and DNR wishes; anticipated LOS > 2 midnights for ongoing IV antibiotics, IV morphine as needed.)
[2017-10-20] MEDS ORDERED: SCOPOLAMINE HYDROBROMIDE 1 MG/3 DAYS PATCH TD PRN (11:42)
[2017-10-20] MEDS ORDERED: LORazepam 2 MG/ML INJ IVP PRN (11:42)
[2017-10-20] MEDS: PIPERACILLIN/TAZO 4.5 GM/DEX 100 ML IV SCH ×3 (12:05→12:07)
--- NOTE | 2017-10-20 12:31 | ASMTCASEMG ---
Living Arrangements What is your living Answers: With Child(kaley) arrangement? Who do you live with? Type Of Residence What kind of residence do Answers: House you live in? Discharge Plan Comments Coordination Status Comments Notes: Patient is an 87yo male who lives at [facility] and was just recently discharged from [facility]. Patient went into respiratory distress yesterday while eating and was brought back to the hospital. Patient is DNR and did not want to be intubated. Spoke with Dr. Swift who states he thinks the patient may pass sometime today. Patient's son is MDPOA and Dr. Christensen spoke with patient's children at length regarding honoring patient's wishes. CM available for consult and family support. No other d/c needs. CM will follow. Date Signed: 10/20/2017 12:30 PM Electronically Signed By:Lo Osborn LCSW
--- NOTE | 2017-10-20 17:29 | HOSPPROG ---
Hospitalist Progress Note Assessment/Plan: 50 min of critical care time spent with this patient, his family, coordinating with his nurse and respiratory therapist, addressing the following issues specifically his sepsis which renders him critically ill with high risk of mortality today: -patient presented with sepsis secondary to aspiration pneumonia with resultant acute on chronic encephalopathy as well as acute hypoxic respiratory failure, metabolic acidosis, demand ischemia -goals of care conversations occurred between the family and Dr. Gaston Christensen, and since the patient has a most form indicating DNR/DNI, the decision was made to treat him supportively with BiPAP therapy, IV antibiotics, ICU level care -after receiving BiPAP treatment overnight, the patient's respiratory drive remains elevated with tachypnea, ongoing fever, ongoing tachycardia, hypotension with systolic blood pressure of 79, and the saturations immediately upon removing the BiPAP mask in placing supplemental oxygen, requiring 100% FiO2 via BiPAP without significant improvement -physical exam of the patient demonstrated a chronically ill-appearing male, completely unresponsive to tactile stimuli, inspiratory rhonchi bilaterally, heart rhythm regular but tachycardic, no lower extremity edema, hypoactive bowel sounds -I reviewed the patient's critical status with his family, and indicated to them that the patient has not appreciably improved despite aggressive care -the patient's family believes that the goal at this juncture should be to provide comfort care and I advised removing the BiPAP mask, having his family with him near by, and having as needed Ativan and morphine available if he experiences respiratory discomfort -I counseled the patient's family that he will most likely experience respiratory compromise and imminent over the course of the next several hours and offered them any additional supportive care which are staff could provide Objective: Vital Signs Temp Pulse Resp BP Pulse Ox 37.2 C 101 H 17 79/45 L 93 10/19/17 16:45 10/20/17 08:02 10/20/17 08:02 10/20/17 08:02 10/20/17 08:02 10/19/17 10/20/17 10/21/17 05:59 05:59 05:59 Intake Total 1217 Output Total 1 Balance 1216 PT 14.2 SEC (12.0-15.0) 10/19/17 14:15 INR 1.08 (0.83-1.16) 10/19/17 14:15 ICD10 Worksheet Patient Problems: Problems Problem Status Onset CVA (cerebral vascular accident) Acute Atrial flutter Acute Aspiration pneumonia Acute Hypoxia Acute
--- NOTE | 2017-10-20 17:36 | PDDCSUM ---
Discharge Summary Discharge Summary: DISCHARGE SUMMARY DATE OF ADMISSION: 10/19/2017 DATE OF EXPIRATION: 10/20/2017 TIME OF EXPIRATION: 15:07 CAUSE OF : SEPSIS DISCHARGE DIAGNOSES: 1. Sepsis present on admission 2. Acute hypoxic respiratory failure 3. Aspiration pneumonia present on admission 4. Acute on chronic encephalopathy 5. Acute metabolic acidosis 6. Acute demand ischemia 7. Supraventricular tachycardia 8. Pressure injury present on admission CONSULTATIONS: None PROCEDURES / IMAGING: BiPAP therapy, chest x-ray demonstrating bilateral pneumonia CHIEF COMPLAINT: Acute unresponsiveness HOSPITAL COURSE BY PROBLEM: 1. Sepsis. Present on admission, evidenced by qSOFA score 3 w/autonomic dysregulation in the setting of infection including acute hypoxic respiratory failure, metabolic acidosis, cardiac demand ischemia, hypotension, in the setting of aspiration pneumonia. The patient was empirically treated with IV fluids and broad-spectrum IV antibiotics, without appreciable improvement. His hypotension worsened, his respiratory failure became fatal, the patient from sepsis. Prior to his , the patient was made comfort measures only after goal of care conversation with the patient's family. 2. Acute hypoxic respiratory failure. Evidenced by visibly labored breathing, objective tachypnea and respiratory rate of greater than 40, hypoxia with an SpO2 of 82-86% on non-rebreather face mask requiring BiPAP therapy and 100% FiO2 , without appreciable stabilization. The cause of his respiratory failure was aspiration pneumonia and sepsis. The patient was do not intubate and his wishes were honored. 3. Aspiration pneumonia. Present on admission, evidenced by bilateral airspace disease on initial chest x-ray as well as visible aspiration with food prior to arrival. He was treated empirically with vancomycin and Zosyn given that this occurred at a healthcare setting and he has recently been hospitalized. His pneumonia evolved into sepsis and he was unable to recover. 4. Acute on chronic encephalopathy. Evidenced by global brain dysfunction characterized as complete unresponsiveness which is an acute change from his baseline which is normally verbally responsive with several word answers, flat affect, able to participate with family. His acute worsening is secondary to the toxic effects of infection and the metabolic effects of sepsis. 5. Acute metabolic acidosis. Secondary to sepsis, his lactic acid was 2.5. 6. Acute demand ischemia. His troponin level 0.09, secondary to sepsis. 7. Supraventricular tachycardia. Most likely provoked by sepsis, minimally responsive to fluids, no cardiac intervention given that he was made comfort measures only. 8. Pressure injury. Present on admission, located on the coccyx, off loading prior to adjusting him to comfort measures. DISCHARGE MEDICATIONS: Please see official discharge medication reconciliation sheet in chart , none. Our condolences go out to the family of Mr. Jeyson Correia.
== END 2017-10-20 15:07 | disposition expired | DRG 871 ==
LOC: EDUNIT# → F2N 16:23
PROVIDERS: ADMIT Student in an Organized Health Care Education/Training Program; ATTEND Internal Medicine
PROC: 5A09358 Assistance with Respiratory Ventilation, Less than 24 Consecutive Hours, Intermittent Positive Airway Pressure (ICD-10-PCS; principal; 2017-10-19)
DX: A41.9 Sepsis, unspecified organism (principal); J69.0 Pneumonitis due to inhalation of food and vomit; R65.20 Severe sepsis without septic shock; J96.01 Acute respiratory failure with hypoxia; G93.40 Encephalopathy, unspecified; E87.2 Acidosis; I24.8 Other forms of acute ischemic heart disease; I47.1 Supraventricular tachycardia; L89.159 Pressure ulcer of sacral region, unspecified stage; F03.90 Unspecified dementia, unspecified severity, without behavioral disturbance, psychotic disturbance, mood disturbance, and anxiety; B02.9 Zoster without complications; Z51.5 Encounter for palliative care; E11.9 Type 2 diabetes mellitus without complications; I25.10 Atherosclerotic heart disease of native coronary artery without angina pectoris; I10 Essential (primary) hypertension; Z66 Do not resuscitate; Z95.1 Presence of aortocoronary bypass graft; Z99.3 Dependence on wheelchair; Z86.73 Personal history of transient ischemic attack (TIA), and cerebral infarction without residual deficits; Z79.4 Long term (current) use of insulin; Z79.82 Long term (current) use of aspirin
CPT/HCPCS: 96374; J0295; J1650; J1815; J2060; J2270; J2543; J3370